=== PATIENT | male | born 1990 | race Caucasian/White ===

== ENCOUNTER 2016-09-30 23:35 | Emergency (ER) | payer OTHER ==
--- NOTE | 2016-10-01 01:23 | ED ---
Melvin Maciel Benjamin, scribed for Tian Louis MD on 10/01/16 at 0123 . GI/ HPI - HPI Summary HPI Summary: 25yo male who recently tried to castrate himself with a failed attempt. Pt was seen at [facility] 5 days ago. Pt returns with sudden onset of severe right suprapubic and testicular pain today after hearing a rip and pop. - History of Current Complaint Chief Complaint: EDGeneral Stated Complaint: TESTICLE PAIN Hx Obtained From: Patient Onset/Duration: Started Hours Ago, Still Present Timing: Constant Severity: Severe Current Severity: Severe Pain Intensity: 8 Location of Pain: Suprapubic - right Additional Locations for Males: Scrotum, Testicles Pain Characteristics: Sharp, Tearing Associated Signs and Symptoms: Positive: Negative - Allergy/Home Medications Allergies/Adverse Reactions: Allergies Allergy/AdvReac Type Severity Reaction Status Date / Time Amoxicillin Allergy Anaphylatic Verified 05/24/15 20:33 Shock PMH/Surg Hx/FS Hx/Imm Hx Endocrine/Hematology History: Denies: Hx Diabetes Cardiovascular History: Denies: Hx Congestive Heart Failure, Hx Hypertension GI History: Reports: Hx Gastroesophageal Reflux Disease History: Denies: Hx Dialysis, Hx Renal Disease Neurological History: Reports: Hx Headaches - Surgical History Surgery Procedure, Year, and Place: s/p appendectomy & cholecystectomy Infectious Disease History: No Infectious Disease History: Denies: Traveled Outside the in Last 30 Days - Family History Known Family History: Positive: Hypertension Negative: Cardiac Disease - Social History Occupation: Unemployed Lives: Alone Alcohol Use: None Hx Substance Use: No Substance Use Type: Reports: None Smoking Status (MU): Current Every Day Smoker Review of Systems Constitutional: Negative Eyes: Negative ENT: Negative Cardiovascular: Negative Respiratory: Negative Gastrointestinal: Negative Positive: pain - testicular and right suprapubic pain Musculoskeletal: Negative Skin: Negative Neurological: Negative Psychological: Normal All Other Systems Reviewed And Are Negative: Yes Physical Exam Triage Information Reviewed: Yes Vital Signs On Initial Exam: Initial Vitals Temp Pulse Resp BP Pulse Ox 98.3 F 95 18 118/72 98 09/30/16 23:41 09/30/16 23:41 09/30/16 23:41 09/30/16 23:41 09/30/16 23:41 Vital Signs Reviewed: Yes Appearance: Positive: Well-Appearing, Pain Distress - mild Skin: Positive: Warm Head/Face: Positive: Normal Head/Face Inspection ENT: Positive: Hearing grossly normal Respiratory/Lung Sounds: Positive: Breath Sounds Present Abdomen Description: Positive: Nontender, Soft Male Genital Exam: Positive: other - scrotal laceration with testicle on the ouside with combine ontop Musculoskeletal: Positive: Strength/ROM Intact Neurological: Positive: Alert, Oriented to Person Place, Time Diagnostics - Vital Signs Vital Signs Temp Pulse Resp BP Pulse Ox 10/01/16 01:11 98 F 95 18 118/72 98 09/30/16 23:41 98.3 F 95 18 118/72 98 - Laboratory Lab Statement: Any lab studies that have been ordered have been reviewed, and results considered in the medical decision making process. GIGU Course/Dx - Course Course Of Treatment: Discussed with [facility] for transfer via EMS at 01:07. - Diagnoses Provider Diagnoses: Testicle trouble Discharge - Discharge Plan Condition: Fair Disposition: TRANS HIGHER LVL OF CARE FAC Referrals: Danita Cardenas DO [Primary Care Provider] - The documentation as recorded by the Melvin horvath Benjamin accurately reflects the service I personally performed and the decisions made by me, Tian Louis MD.
[2016-10-01 03:03] VITALS: BP 137/86
== END 2016-10-01 03:03 | disposition short-term general hospital (02) ==
LOC: ED 23:35
DX: N50.811 Right testicular pain (principal); S31.3 Open wound of scrotum and testes; V00-Y99 External causes of morbidity; Y92.9 Unspecified place or not applicable; K21.9 Gastro-esophageal reflux disease without esophagitis; R51 Headache; Z90.49 Acquired absence of other specified parts of digestive tract; Z88.1 Allergy status to other antibiotic agents; F17.210 Nicotine dependence, cigarettes, uncomplicated
CPT/HCPCS: 99283

== ENCOUNTER 2017-01-26 12:02 | Emergency (ER) | payer OTHER ==
[2017-01-26] MEDS ORDERED: Aspirin Low Dose CHEW TAB* 81 MG PO ONE (13:37)
[2017-01-26] MEDS ORDERED: Morphine INJ* 4 MG/ML 1 ML CARPUJECT IV ONE (13:39)
[2017-01-26] MEDS ORDERED: NS 0.9% 1000 ML* 1,000 ML IV ONE (13:39)
[2017-01-26] MEDS ORDERED: Ondansetron INJ* 2 MG/ML VIAL IV ONE (13:39)
[2017-01-26 14:00] LABS: Hematocrit 38 % (42-52); Hemoglobin 12.3 g/dl (14.0-18.0); Mean Corpuscular HGB Conc 33 g/dl (31-36); Mean Corpuscular Hemoglobin 30 pg (27-31); Mean Corpuscular Volume 91 fL (80-94); Mean Platelet Volume 8 um3 (7.4-10.4); Red Blood Count 4.16 10^6/ul (4.0-5.4); Red Cell Distribution Width 13 % (10.5-15)
[2017-01-26 14:16] LABS: Alcohol < 10 mg/dL (<10)
[2017-01-26 14:18] LABS: ALT 13 U/L (7-52); AST 15 U/L (13-39); Albumin 4.2 g/dL (3.2-5.2); Alkaline Phosphatase 60 U/L (34-104); Anion Gap 7 mmol/L (2-11); BUN/Creatinine Ratio 18.3 (8-20); Blood Urea Nitrogen 13 mg/dL (6-24); CO2 Carbon Dioxide 25 mmol/L (22-32); Calcium 9.3 mg/dL (8.6-10.3); Chloride 103 mmol/L (101-111); EGFR African American 169.9 (>60); EGFR Non-African American 132.1 (>60); Glucose 91 mg/dL (70-100); Potassium 3.8 mmol/L (3.5-5.0); Sodium 135 mmol/L (133-145); Total Protein 7.2 g/dL (6.4-8.9)
[2017-01-26 14:22] LABS: Benzodiazepine Urine Screen None Detected (None Detect)
[2017-01-26] MEDS ORDERED: Iohexol 350* (CONTRAST) 500 ML MDV IV ONE (14:24)
--- NOTE | 2017-01-26 15:14 | RAD ---
HISTORY: Chest pain, syncope, sudden onset headache COMPARISONS: None TECHNIQUE: Multiple contiguous axial CT scans were obtained of the head without intravenous contrast. FINDINGS: HEMORRHAGE/INFARCT: There is no hemorrhage or acute infarct. MASSES/SHIFT: There is no mass or shift. EXTRA-AXIAL SPACES: There are no extra-axial fluid collections. SULCI AND VENTRICLES: The sulci and ventricles are normal in size and position for the patient's stated age. CEREBRUM: There are no focal parenchymal abnormalities. BRAINSTEM: There are no focal parenchymal abnormalities. CEREBELLUM: There are no focal parenchymal abnormalities. VESSELS: The vessels are grossly normal. PARANASAL SINUSES: The paranasal sinuses are clear. ORBITS: The orbits are unremarkable. BONES AND SOFT TISSUE: No bone or soft tissue abnormalities are noted. OTHER: None IMPRESSION: NO ACUTE INTRACRANIAL PATHOLOGY.
--- NOTE | 2017-01-26 15:16 | RAD ---
HISTORY: Syncope, fall, facial trauma COMPARISONS: None TECHNIQUE: Multiple contiguous axial CT scans were obtained of the face without intravenous contrast, with coronal and sagittal multiplanar reformations. FINDINGS: BONES: There is no displaced fracture or dislocation. The orbital rim is intact. The zygomatic arch is intact. The pterygoid plates are intact. ORBITS: The globes are round. The optic nerves are symmetric. The extraocular musculature is normal. There is no post septal or intraconal inflammatory change. There is no retrobulbar hematoma. PARANASAL SINUSES: There is mild mucosal thickening of the maxillary sinuses. There are small bilateral mastoid effusions. BRAIN AND SOFT TISSUE: Unremarkable. OTHER: None. IMPRESSION: 1. NO FACIAL FRACTURE. 2. SMALL BILATERAL MASTOID EFFUSIONS. MILD SINUS MUCOSAL INFLAMMATORY DISEASE, WITHOUT AIR-FLUID LEVEL TO SUGGEST ACUTE SINUSITIS.
--- NOTE | 2017-01-26 15:17 | RAD ---
HISTORY: Chest pain, syncope, fall, altered mental status, facial trauma COMPARISONS: None TECHNIQUE: Multiple contiguous axial CT scans were obtained of the cervical spine without intravenous contrast, with coronal and sagittal multiplanar reformations. FINDINGS: BRAIN: The visualized brain is unremarkable CENTRAL CANAL: Evaluation of the central canal is limited on CT technique, however there is no obvious canalicular mass or epidural hemorrhage. ALIGNMENT: There is straightening of the normal cervical lordosis. VERTEBRAL BODIES: The odontoid process is intact. The atlantoaxial intervals are symmetric. The vertebral bodies are normal in attenuation, without fracture. JOINTS: There is no subluxation or dislocation MUSCULATURE: Unremarkable INTERVERTEBRAL DISCS: There is mild diffuse loss of intervertebral disc height. AXIAL IMAGES: On axial images, there is no osseous neural foraminal narrowing or central canal stenosis. SOFT TISSUES: The visualized soft tissues of the neck are unremarkable. The prevertebral fat stripe is preserved. OTHER: None. IMPRESSION: NO ACUTE OSSEOUS INJURY OF THE CERVICAL SPINE
[2017-01-26] MEDS ORDERED: Ketorolac INJ* 30 MG/ML 1 ML VIAL IV PUSH ONE (15:25)
--- NOTE | 2017-01-26 15:27 | RAD ---
INDICATION: Chest pain, syncope on hormone replacement therapy. COMPARISON: There are no prior studies available for comparison. TECHNIQUE: A CT angiogram of the chest was performed with intravenous following intravenous injection of 76 ml of Omnipaque 350 nonionic contrast. Contiguous axial sections were obtained from the lung apices through the lung bases. Images were reconstructed in the coronal and sagittal planes. FINDINGS: There is slightly suboptimal opacification of the pulmonary arteries. There is an intraluminal filling defect in a left posterior basilar segmental artery extending into the subsegmental artery branch consistent with a pulmonary embolism. No other intraluminal filling defects are seen. The heart is within normal limits in size. No pericardial effusion is present. The thoracic aorta is normal in caliber and demonstrates homogeneous contrast opacification. No significant enlarged mediastinal or hilar lymph nodes are seen. The lungs are clear. No pleural effusion is seen. Images of the upper abdomen appear within normal limits without evidence for acute finding. No significant focal osseous abnormality is seen. The results of this exam were discussed with the referring clinician. IMPRESSION: LEFT LOWER LOBE BASILAR SEGMENTAL AND SUBSEGMENTAL ARTERY BRANCH PULMONARY EMBOLI.
[2017-01-26] MEDS ORDERED: Pantoprazole IV* 40 MG IV ONE (16:59)
[2017-01-26] MEDS ORDERED: Pantoprazole IV* 80 MG in NS 0.9% 250 ML* 250 ML IVPB SCH (17:00)
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
--- NOTE | 2017-01-26 18:28 | ED ---
IArben Angela, scribed for Darell Dyson MD on 01/26/17 at 1820 . Progress - Progress Note Progress Note: [facility] reports [facility], who accepts inmates, are on diversion. Called [facility] at 17:33. They reported the didn't have any beds. Called [facility] at 18:11. Dr. Alfonso accepts the pt for transfer to ED in [facility]. He understands the pt has not had any anticoagulation. He also understands we have called 5 different hospitals but none were able to accept the pt. Re-Evaluation - Re-Evaluation First Eval Re-Evaluation Time: 16:15 Comment: I reviewed the CTA chest with the pt. Pt reports he was told he was at high risk for a pulmonary embolism. Course/Dx - Diagnoses Provider Diagnoses: Pulmonary embolism, Hematemesis, Syncope, Facial abrasion - Provider Notifications Time Discussed With Above Provider: 16:37 Instructed by Provider To: Other - I discussed pt care with Dr. Umaña, who accepted the pt for transfer to [facility]. Since the pt is hemodrynamically stable, we will hold off on anticoagulation until GI bleed is defined. The documentation as recorded by the Arben horvath Angela accurately reflects the service I personally performed and the decisions made by me, Darell Dyson MD.
[2017-01-26 18:36] VITALS: BP 124/84
== END 2017-01-26 19:17 | disposition short-term general hospital (02) ==
LOC: ED 12:02
DX: R55 Syncope and collapse (principal); I26.99 Other pulmonary embolism without acute cor pulmonale; K92.0 Hematemesis; S00.81XA Abrasion of other part of head, initial encounter; K21.9 Gastro-esophageal reflux disease without esophagitis; W50.0XXA Accidental hit or strike by another person, initial encounter; Y92.149 Unspecified place in prison as the place of occurrence of the external cause
CPT/HCPCS: 36415; 70450; 70486; 71275; 72125; 80053; 80307; 80320; 83605; 84484; 85025; 93005; 96360; 96374; 96375; 99284; A9270-GY; G0480; J1885; J2270; J2405; Q9967

== ENCOUNTER 2017-03-18 16:20 | Emergency (ER) | payer OTHER ==
--- NOTE | 2017-03-18 17:35 | RAD ---
INDICATION: Foreign body in penis. TECHNIQUE: An AP view of the pelvis was obtained. FINDINGS: The bones are in normal alignment. No fracture is seen. No radiopaque foreign body is seen. IMPRESSION: NO RADIOPAQUE FOREIGN BODY IS SEEN.
[2017-03-18 17:44] LABS: ABS Basophils 0.1 10^3/ul (0-0.2); ABS Eosinophils 0.2 10^3/ul (0-0.6); ABS Monocytes 0.8 10^3/ul (0-0.8); ABS Neutrophils 6.6 10^3/ul (1.5-7.7); ABS Nucleated RBC 0 10^3/ul; Eosinophil % 2.2 % (0-6); Hematocrit 27 % (42-52); Hemoglobin 8.8 g/dl (14.0-18.0); Lymphocyte % 20.5 % (25-47); Mean Corpuscular HGB Conc 33 g/dl (31-36); Mean Corpuscular Hemoglobin 28 pg (27-31); Mean Corpuscular Volume 84 fL (80-94); Mean Platelet Volume 7 um3 (7.4-10.4); Nucleated Red Blood Cells % 0; Platelet Count 557 10^3/ul (150-450); Red Cell Distribution Width 15 % (10.5-15); White Blood Count 9.7 10^3/ul (3.5-10.8)
[2017-03-18 17:52] LABS: INR 1.01 (0.77-1.02)
[2017-03-18 17:59] LABS: EGFR Non-African American 111.9 (>60)
--- NOTE | 2017-03-18 18:28 | RAD ---
INDICATION: Foreign body in the penis. COMPARISON: Comparison is made with a prior CT of the abdomen and pelvis from May 25, 2015. TECHNIQUE: Contiguous axial sections were obtained through the pelvis without intravenous or oral contrast. Images were reconstructed in the coronal and sagittal planes. FINDINGS: There is a cylindrical air density area present within the distal portion of the penis measuring 2.5 cm long by 0.2 cm in diameter possibly associated with a foreign body although discrete radiopaque foreign body is not visualized. The urinary bladder is nondistended. No bladder wall thickening is seen. No air or foreign body is noted within the bladder. The visualized portion of the small bowel and colon appear nondistended. There is mild sigmoid diverticulosis without evidence for diverticulitis. The patient appears to be status post appendectomy. No free intraperitoneal air or fluid is seen. No significant focal osseous abnormality is seen. There appears to be a small old ununited avulsion fracture fragment arising from the right lesser trochanter. Joint spaces appear maintained. No significant arthritic change is seen IMPRESSION: THERE IS A CYLINDRICAL AIR DENSITY AREA PRESENT IN THE DISTAL PORTION OF THE PENIS IN THE REGION OF THE URETHRA POSSIBLY ASSOCIATED WITH A FOREIGN BODY ALTHOUGH A DISCRETE RADIOPAQUE FOREIGN BODY IS NOT SEEN.
[2017-03-18] MEDS ORDERED: Clindamycin CAP* 150 MG PO ONE (20:06)
--- NOTE | 2017-03-18 20:16 | ED ---
Isaias Maciel Natalie, scribed for Hollis Melendrez MD on 03/18/17 at 1724 . GI/ HPI - HPI Summary HPI Summary: The pt is a 26 y/o M presenting to the ED c/o foreign objects in urethra since 03/16/17. The pt placed a rolled up yogurt foil top and piece of gauze paper wrapper in his urethra, both of which are not currently visible anymore. He has been unable to urinate since 03/16/17, but he has noticed minimal bleeding. The pt also has a ruptured wound from a castration attempt in the left testicular side of scrotum. The pt is currently in pain, which is rated 7/10. Pt additionally c/o low back pain bilaterally. He hasnt been drinking due to having a full bladder. He had to go to [facility] earlier this month for having a piece of a spoon stuck in his urethra, which was taken out without surgery. - History of Current Complaint Chief Complaint: EDUrogenitalProblems Stated Complaint: UNABLE TO VOID Hx Obtained From: Patient Onset/Duration: Started Days Ago - 03/16/17, Still Present Timing: Lasting Days Severity: Severe Current Severity: Severe Pain Intensity: 7 Additional Locations for Males: Penis Associated Signs and Symptoms: Positive: Back Pain, Other: - blood from urethra , unable to urinate, ruptured castration attempt wound Aggravating Factor(s): Voiding Alleviating Factor(s): Nothing - Allergy/Home Medications Allergies/Adverse Reactions: Allergies Allergy/AdvReac Type Severity Reaction Status Date / Time Amoxicillin Allergy Anaphylatic Verified 05/24/15 20:33 Shock PMH/Surg Hx/FS Hx/Imm Hx Previously Healthy: No Endocrine/Hematology History: Denies: Hx Diabetes Cardiovascular History: Denies: Hx Congestive Heart Failure, Hx Hypertension GI History: Reports: Hx Gastroesophageal Reflux Disease History: Denies: Hx Dialysis, Hx Renal Disease Neurological History: Reports: Hx Headaches Psychiatric History: Reports: Hx Substance Abuse, Other Psychiatric Issues/ Disorders - gender identity - Surgical History Surgery Procedure, Year, and Place: s/p appendectomy & cholecystectomy Infectious Disease History: No Infectious Disease History: Denies: Traveled Outside the [place] in Last 30 Days - Family History Known Family History: Positive: Hypertension, Other - Mother: ischemic stroke Negative: Cardiac Disease - Social History Alcohol Use: None Hx Substance Use: No Substance Use Type: Reports: None Smoking Status (MU): Never Smoked Tobacco Review of Systems Positive: pain, other - foreign objects in urethra, bleeding from urethra Positive: Other - low back pain Neurological: Other - decreased drinking All Other Systems Reviewed And Are Negative: Yes Physical Exam - Summary Physical Exam Summary: Appearance: Well-appearing, Well-nourished Skin: Warm, dry HEENT: Normal, Extraocular movements intact, PERRL Mucus membranes moist Neck: Supple, nontender Respiratory: Lung sounds clear to auscultation Cardiovascular: Normal Abdomen: Soft, nontender, no distension Bowel: Present : Penis: normal external anatomy, no evidence of foreign body. Scrotum: 3cm angulated laceration at anterior scrotum along midline, bleeding controlled [employer] , this is an old injury that opened up today Musculoskeletal: Normal, Strength/ROM Intact Neurological: Normal, A&Ox3 Psychiatric: Normal Triage Information Reviewed: Yes Vital Signs On Initial Exam: Initial Vitals Temp Pulse Resp BP Pulse Ox 98.4 F 84 16 124/62 99 03/18/17 16:22 03/18/17 16:22 03/18/17 16:22 03/18/17 16:22 03/18/17 16:22 Vital Signs Reviewed: Yes - [place] Coma Scale Coma Scale Total: 15 Diagnostics - Vital Signs Vital Signs Temp Pulse Resp BP Pulse Ox 03/18/17 16:22 98.4 F 84 16 124/62 99 - Laboratory Lab Results: Lab Results 03/18/17 03/18/17 03/18/17 Range/Units 17:30 17:30 17:30 WBC 9.7 (3.5-10.8) 10^3/ul RBC 3.20 L (4.0-5.4) 10^6/ul Hgb 8.8 L (14.0-18.0) g/dl Hct 27 L (42-52) % MCV 84 (80-94) fL MCH 28 (27-31) pg MCHC 33 (31-36) g/dl RDW 15 (10.5-15) % Plt Count 557 H (150-450) 10^3/ul MPV 7 L (7.4-10.4) um3 Neut % (Auto) 68.4 (38-83) % Lymph % (Auto) 20.5 L (25-47) % Ralls % (Auto) 8.3 (1-9) % Eos % (Auto) 2.2 (0-6) % Baso % (Auto) 0.6 (0-2) % Absolute Neuts (auto) 6.6 (1.5-7.7) 10^3/ul Absolute Lymphs (auto) 2.0 (1.0-4.8) 10^3/ul Absolute Monos (auto) 0.8 (0-0.8) 10^3/ul Absolute Eos (auto) 0.2 (0-0.6) 10^3/ul Absolute Basos (auto) 0.1 (0-0.2) 10^3/ul Absolute Nucleated RBC 0 10^3/ul Nucleated RBC % 0 INR (Anticoag Therapy) 1.01 (0.77-1.02) APTT 31.9 (26.0-36.3) seconds Sodium 137 (133-145) mmol/L Potassium 4.3 (3.5-5.0) mmol/L Chloride 105 (101-111) mmol/L Carbon Dioxide 27 (22-32) mmol/L Anion Gap 5 (2-11) mmol/L BUN 12 (6-24) mg/dL Creatinine 0.82 (0.67-1.17) mg/dL Est GFR ( Amer) 143.9 (>60) Est GFR (Non-Af Amer) 111.9 (>60) BUN/Creatinine Ratio 14.6 (8-20) Glucose 95 (70-100) mg/dL Lactic Acid (0.5-2.0) mmol/L Calcium 9.0 (8.6-10.3) mg/dL Magnesium 2.0 (1.9-2.7) mg/dL Total Bilirubin 0.30 (0.2-1.0) mg/dL AST 10 L (13-39) U/L ALT 14 (7-52) U/L Alkaline Phosphatase 48 (34-104) U/L Total Protein 7.1 (6.4-8.9) g/dL Albumin 3.9 (3.2-5.2) g/dL Globulin 3.2 (2-4) g/dL Albumin/Globulin Ratio 1.2 (1-3) 03/18/17 Range/Units 17:30 WBC (3.5-10.8) 10^3/ul RBC (4.0-5.4) 10^6/ul Hgb (14.0-18.0) g/dl Hct (42-52) % MCV (80-94) fL MCH (27-31) pg MCHC (31-36) g/dl RDW (10.5-15) % Plt Count (150-450) 10^3/ul MPV (7.4-10.4) um3 Neut % (Auto) (38-83) % Lymph % (Auto) (25-47) % Ralls % (Auto) (1-9) % Eos % (Auto) (0-6) % Baso % (Auto) (0-2) % Absolute Neuts (auto) (1.5-7.7) 10^3/ul Absolute Lymphs (auto) (1.0-4.8) 10^3/ul Absolute Monos (auto) (0-0.8) 10^3/ul Absolute Eos (auto) (0-0.6) 10^3/ul Absolute Basos (auto) (0-0.2) 10^3/ul Absolute Nucleated RBC 10^3/ul Nucleated RBC % INR (Anticoag Therapy) (0.77-1.02) APTT (26.0-36.3) seconds Sodium (133-145) mmol/L Potassium (3.5-5.0) mmol/L Chloride (101-111) mmol/L Carbon Dioxide (22-32) mmol/L Anion Gap (2-11) mmol/L BUN (6-24) mg/dL Creatinine (0.67-1.17) mg/dL Est GFR ( Amer) (>60) Est GFR (Non-Af Amer) (>60) BUN/Creatinine Ratio (8-20) Glucose (70-100) mg/dL Lactic Acid 1.4 (0.5-2.0) mmol/L Calcium (8.6-10.3) mg/dL Magnesium (1.9-2.7) mg/dL Total Bilirubin (0.2-1.0) mg/dL AST (13-39) U/L ALT (7-52) U/L Alkaline Phosphatase (34-104) U/L Total Protein (6.4-8.9) g/dL Albumin (3.2-5.2) g/dL Globulin (2-4) g/dL Albumin/Globulin Ratio (1-3) Result Diagrams: 03/18/17 17:30 03/18/17 17:30 Lab Statement: Any lab studies that have been ordered have been reviewed, and results considered in the medical decision making process. - Radiology Pelvis XR Xray Interpretation: No Acute Changes - No radiopaque foreign body is seen. ED physician has reviewed this report. Radiology Interpretation Completed By: Radiologist - CT CT Pelvis CT Interpretation: No Acute Changes - There is a cylindrical air density area present in the distal portion of the penis in the region of the urethra possibly associated with a foreign body although a discrete radiopaque foreign body is not seen. ED physician has reviewed this report. CT Interpretation Completed By: Radiologist ANURADHAU Course/Dx - Course Assessment/Plan: possible foreign body visualized on ct, after which patient says he was able to remove from penis and showed me FB in urinal. bladder scan shows 126ml of urine, normal creatinine and BUN, no evidence of obstruction or nephropathy. No evidence of metallic FB on ct. Pt able to urinate here in ED. Old scrotal laceration shows no evidence of infection. bleeding controlled, closure not indicated at this time due to infection risk. Started on prophylactic antibiotics for healing with secondary intent. Instructed to fu with PMD or urologist for wound check. agrees to and understnads dc instructions. - Diagnoses Provider Diagnoses: Penile FB, Scrotal laceration Discharge - Discharge Plan Condition: Improved Disposition: LAW ENFORCEMENT/COURT Prescriptions: Clindamycin HCl [Clindamycin 150 MG CAP*] 300 mg PO QID 7 Days #56 cap Patient Education Materials: Laceration (ED), Soft Tissue Foreign Body (ED) Referrals: Casey RENTERIA,Sol Hernandez [Primary Care Provider] - Additional Instructions: PLEASE TAKE CLINDAMYCIN 300MG FOUR TIMES DAILY FOR 7 DAYS TO PREVENT INFECTION IN SCROTAL AREA PLEASE MAKE AN APPOINTMENT WITH A UROLOGIST TO REEVALUATE WOUND CLOSURE PLEASE RETURN IMMEDIATELY TO THE ER IF YOU HAVE ANY WORSENING OR CONCERNING SYMPTOMS PLEASE MAKE AN APPOINTMENT TO BE SEEN BY YOUR PRIMARY CARE DOCTOR WITHIN 1 WEEK The documentation as recorded by the Isaias horvath Natalie accurately reflects the service I personally performed and the decisions made by , Hollis Melendrez MD.
[2017-03-18 20:51] VITALS: BP 108/68
== END 2017-03-18 20:51 ==
LOC: ED 16:20
DX: T19.0XXA Foreign body in urethra, initial encounter (principal); S31.31XA Laceration without foreign body of scrotum and testes, initial encounter; M54.9 Dorsalgia, unspecified; W45.8XXA Other foreign body or object entering through skin, initial encounter; Y92.9 Unspecified place or not applicable
CPT/HCPCS: 36415; 72170; 72192; 80053; 83605; 83735; 85025; 85610; 85730; 99283; A9270-GY

== ENCOUNTER 2017-08-15 07:40 | Emergency (ER) | payer OTHER ==
[2017-08-15] MEDS ORDERED: Phytonadione INJ (Adult)* 10 MG/ML 1 ML AMP IV ONE (07:57)
[2017-08-15] MEDS ORDERED: LORazepam INJ* 2 MG/ML 1 ML VIAL ONE (08:04)
[2017-08-15] MEDS ORDERED: Levofloxacin 750 MG IVPREMIX(* 750 MG/150 ML BAG IVPB ONE (08:04)
[2017-08-15] MEDS ORDERED: LORazepam INJ* 2 MG/ML 1 ML VIAL IV PUSH ONE (08:08)
[2017-08-15] MEDS ORDERED: DOXYcycline IV* 100 MG in NS 0.9% 250 ML* 250 ML IVPB ONE (08:14)
[2017-08-15 08:31] LABS: Hematocrit 38 % (42-52); Hemoglobin 12.4 g/dl (14.0-18.0); Mean Corpuscular HGB Conc 33 g/dl (31-36); Mean Corpuscular Hemoglobin 30 pg (27-31); Mean Corpuscular Volume 91 fL (80-94); Mean Platelet Volume 7.6 um3 (7.4-10.4); Platelet Count 417 10^3/ul (150-450); Red Blood Count 4.14 10^6/ul (4.0-5.4); Red Cell Distribution Width 15 % (10.5-15); White Blood Count 39.2 10^3/ul (3.5-10.8)
[2017-08-15 08:41] LABS: INR 2.29 (0.77-1.02)
[2017-08-15 08:53] LABS: ABS Basophils 0.1 10^3/ul (0-0.2); ABS Eosinophils 0.1 10^3/ul (0-0.6); ABS Monocytes 3.2 10^3/ul (0-0.8); ABS Neutrophils 33.8 10^3/ul (1.5-7.7); ABS Nucleated RBC 0 10^3/ul; Eosinophil % 0.2 % (0-6); Nucleated Red Blood Cells % 0.1
[2017-08-15] MEDS ORDERED: Tetan/Diph/Pertus SYR(Tdap)* 0.5 ML SYR(BOOSTRIX) use SYR IM ONE (09:00)
--- NOTE | 2017-08-15 09:00 | ED ---
Theresa Maciel Rebecca, scribed for Donald Lara MD on 08/15/17 at 0805 . GI/ HPI - HPI Summary HPI Summary: Pt is a 26 y/o transgender who prefers the pronouns she/her BIBA from [place] who presents to ED with a scrotal laceration and scrotal and testicular bleeding s/p self-induced injury and attempted right testicle removal. Pt reports that she began ripping through the scrotal sac with her fingers at about midnight (7 hours 40 minutes NEWS ANCHOR) and she reports severing a vessel at 0500 (2 hours 40 minutes NEWS ANCHOR). Pt states that she was trying to get the testicle off and I didnt really care if it killed me. States that she found the large vein, artery and ripped through it. Reports that she lost control and that this is her third time doing so, though not previously as severely. Associated pain is currently severe, ranked 9/10. Currently c/o right foot numbness, per nurses triage. Additionally notes swallowing a pen on Sunday night (3 days ago) after which she was on suicide watch. Previously was taking estrogen, but stopped it last year, is now on spironolactone and progesterone. PMHx psoriasis, psoriatic arthritis, PE is currently on Coumadin. - History of Current Complaint Chief Complaint: EDTraumaMultiple Stated Complaint: TESTICLE INJURY Hx Obtained From: Patient Onset/Duration: Started Hours Ago - 0000, Still Present, Worse Since - 0500 Current Severity: Severe Pain Intensity: 9 Additional Locations for Males: Scrotum, Testicles Associated Signs and Symptoms: Positive: Other: - R foot numbness - Allergy/Home Medications Allergies/Adverse Reactions: Allergies Allergy/AdvReac Type Severity Reaction Status Date / Time amoxicillin Allergy Anaphylatic Verified 08/15/17 08:34 Shock Home Medications: Home Medications Ferrous Sulfate TAB* 325 mg PO BID 08/15/17 [History Confirmed 08/15/17] Finasteride [Proscar] 5 mg PO DAILY 08/15/17 [History Confirmed 08/15/17] Warfarin TAB(*) [Coumadin TAB(*)] 10 mg PO QPM 08/15/17 [History Confirmed 08/15] medroxyPROGESTERone TAB* [Provera TAB*] 5 mg PO DAILY 06/06/18 [History Confirmed 08/15/17] PMH/Surg Hx/FS Hx/Imm Hx Endocrine/Hematology History: Reports: Hx Anticoagulant Therapy - Coumadin, Other Endocrine/Hematological Disorders - Hx psoriasis Denies: Hx Diabetes Cardiovascular History: Denies: Hx Congestive Heart Failure, Hx Hypertension Respiratory History: Reports: Hx Pulmonary Embolism GI History: Reports: Hx Gastroesophageal Reflux Disease History: Denies: Hx Dialysis, Hx Renal Disease Musculoskeletal History: Reports: Other Musculoskeletal History - Hx Psoriatic arthritis Neurological History: Reports: Hx Headaches Psychiatric History: Reports: Hx Substance Abuse, Other Psychiatric Issues/ Disorders - gender identity - Surgical History Surgery Procedure, Year, and Place: s/p appendectomy & cholecystectomy Infectious Disease History: No Infectious Disease History: Denies: Traveled Outside the [place] in Last 30 Days - Family History Known Family History: Positive: Hypertension, Other - Mother: ischemic stroke Negative: Cardiac Disease - Social History Alcohol Use: None Hx Substance Use: No Substance Use Type: Reports: None Smoking Status (MU): Never Smoked Tobacco Review of Systems Positive: pain - Scrotal and testicular, other - Scrotal and testicular bleeding Positive: Other - Scrotal laceration Positive: Numbness - foot Positive: Other - Swallowed a pen All Other Systems Reviewed And Are Negative: Yes Physical Exam - Summary Physical Exam Summary: Appearance: In distress, shivering Skin: pale, cold Head/face: normal Eyes: EOMI, BRISA ENT: normal Neck: supple, non-tender Respiratory: CTA, breath sounds present Cardiovascular: Tachycardic, pulses symmetrical Abdomen: non-tender, soft Bowel Sounds: present Musculoskeletal: normal, strength/ROM intact Neuro: normal, sensory motor intact, A&Ox3 : Streaming pulsatile hemorrhage from a vessel on the exposed testicle on the right side Triage Information Reviewed: Yes Vital Signs On Initial Exam: Initial Vitals Temp Pulse Resp BP Pulse Ox 98.5 F 115 12 122/78 99 08/15/17 07:47 08/15/17 07:47 08/15/17 07:47 08/15/17 07:47 08/15/17 07:47 Vital Signs Reviewed: Yes Procedures - Procedure Summary Procedure Summary: Wound management: Reason: Active arterial hemorrhage Description: The right testicle was exposed from the right hemiscrotum. There is a actively bleeding pulsatile continuous flow from a lacerated artery. I put pressure on this which failed to stop the bleeding. I then infiltrated 1 cc of lidocaine into the area and placed a edydga-gy-vfeox suture of 4-0 Vicryl. This stopped the bleeding temporarily. About 5-10 minutes later bleeding recurred. A hemostat clamp was placed on the bleeder and a second vrndnq-hn-zxovf suture of 4-0 chromic was placed. This stopped the bleeding. Saline soaked surgical towel was placed over the area. Patient tolerated this well without complication other than bleeding. Blood loss prior to procedure was significant. Diagnostics - Vital Signs Vital Signs Temp Pulse Resp BP Pulse Ox 08/15/17 07:47 98.5 F 115 12 122/78 99 - Laboratory Lab Results: Lab Results 08/15/17 08/15/17 08/15/17 Range/Units 08:21 08:21 08:21 WBC (3.5-10.8) 10^3/ul RBC (4.0-5.4) 10^6/ul Hgb (14.0-18.0) g/dl Hct (42-52) % MCV (80-94) fL MCH (27-31) pg MCHC (31-36) g/dl RDW (10.5-15) % Plt Count (150-450) 10^3/ul MPV (7.4-10.4) um3 Neut % (Auto) Lymph % (Auto) [place] % (Auto) Eos % (Auto) Baso % (Auto) Absolute Neuts (auto) Absolute Lymphs (auto) Absolute Monos (auto) Absolute Eos (auto) Absolute Basos (auto) Absolute Nucleated RBC Nucleated RBC % INR (Anticoag Therapy) 2.29 H (0.77-1.02) APTT 36.5 H (26.0-36.3) seconds Sodium 132 L (139-145) mmol/L Potassium 3.4 L (3.5-5.0) mmol/L Chloride 102 (101-111) mmol/L Carbon Dioxide 21 L (22-32) mmol/L Anion Gap 9 (2-11) mmol/L BUN 13 (6-24) mg/dL Creatinine 1.00 (0.67-1.17) mg/dL Est GFR ( Amer) 114.4 (>60) Est GFR (Non-Af Amer) 89.0 (>60) BUN/Creatinine Ratio 13.0 (8-20) Glucose 154 H (70-100) mg/dL Calcium 8.7 (8.6-10.3) mg/dL Total Bilirubin 0.80 (0.2-1.0) mg/dL AST 34 (13-39) U/L ALT 49 (7-52) U/L Alkaline Phosphatase 68 (34-104) U/L Total Protein 6.8 (6.4-8.9) g/dL Albumin 3.8 (3.2-5.2) g/dL Globulin 3.0 (2-4) g/dL Albumin/Globulin Ratio 1.3 (1-3) Blood Type A Positive Antibody Screen Pending Crossmatch See Detail 08/15/17 Range/Units 08:23 WBC 39.2 H (3.5-10.8) 10^3/ul RBC 4.14 (4.0-5.4) 10^6/ul Hgb 12.4 L (14.0-18.0) g/dl Hct 38 L (42-52) % MCV 91 (80-94) fL MCH 30 (27-31) pg MCHC 33 (31-36) g/dl RDW 15 (10.5-15) % Plt Count 417 (150-450) 10^3/ul MPV 7.6 (7.4-10.4) um3 Neut % (Auto) Pending Lymph % (Auto) Pending [place] % (Auto) Pending Eos % (Auto) Pending Baso % (Auto) Pending Absolute Neuts (auto) Pending Absolute Lymphs (auto) Pending Absolute Monos (auto) Pending Absolute Eos (auto) Pending Absolute Basos (auto) Pending Absolute Nucleated RBC Pending Nucleated RBC % Pending INR (Anticoag Therapy) (0.77-1.02) APTT (26.0-36.3) seconds Sodium (139-145) mmol/L Potassium (3.5-5.0) mmol/L Chloride (101-111) mmol/L Carbon Dioxide (22-32) mmol/L Anion Gap (2-11) mmol/L BUN (6-24) mg/dL Creatinine (0.67-1.17) mg/dL Est GFR ( Amer) (>60) Est GFR (Non-Af Amer) (>60) BUN/Creatinine Ratio (8-20) Glucose (70-100) mg/dL Calcium (8.6-10.3) mg/dL Total Bilirubin (0.2-1.0) mg/dL AST (13-39) U/L ALT (7-52) U/L Alkaline Phosphatase (34-104) U/L Total Protein (6.4-8.9) g/dL Albumin (3.2-5.2) g/dL Globulin (2-4) g/dL Albumin/Globulin Ratio (1-3) Blood Type Antibody Screen Crossmatch Result Diagrams: 08/15/17 08:23 08/15/17 08:21 Lab Statement: Any lab studies that have been ordered have been reviewed, and results considered in the medical decision making process. - Radiology CXR Xray Interpretation: No Acute Changes - Negative, no FB identified. Pending official report. Radiology Interpretation Completed By: ED Physician Abdomen XR Radiology Interpretation Completed By: ED Physician - Surgical clips in the RUQ. Pending official report. - EKG 0753 Cardiac Rate: Tachycardia - 137 bpm EKG Rhythm: Sinus Tachycardia EKG Interpretation: Nl axis, nl interval, rate-related ST changes Re-Evaluation - Re-Evaluation First Eval Re-Evaluation Time: 08:54 Change: Improved Comment: Patient had a likely ischemic seizure with extensor posturing. Quickly recovered. Ativan had been given. Bleeding now stopped after ligation. Helicopter transport unavailable. Improving with blood infusion, plasma being started now. GIGU Course/Dx - Course Course Of Treatment: Patient presents critically ill and obvious hemorrhagic shock. Patient is cold, shivering and pale. There is active hemorrhage ligated with 2 [id number] sutures. She is said to eaten a Pen also, I did not identify a foreign body on KUB x-ray. 2 units of packed red blood cells were given through rapid infuser (level I) the patient was warmed. Patient is anaphylactic to penicillin and so a dose of IV doxycycline was ordered. Transport arrangements were made by the physician optical assistant while I stabilized the patient. Our urologist was contacted but had just entered a case in the OR. The surgeon director zone came to the ER but agrees the patient should be sent to the trauma center. Accepting trauma physician will be Dr. Bray at [facility]. She did have a short tonic-clonic seizure which is likely due to hemorrhage/ischemia. Ativan was given. Bleeding was stopped and transfer arrangements are made by ground ALS. A unit of plasma was given prior to transport. Tetanus is up-to-date. Antibiotic pending. This likely will be given in route to trauma center. - Diagnoses Provider Diagnoses: Hemorrhagic shock, Self-inflicted injury, Scrotal laceration, Laceration of artery, Foreign body ingestion - Physician Notifications Discussed Care Of Patient With: Robert Ozuna Time Discussed With Above Provider: 07:59 Instructed by Provider To: Other - States that he is going to be in the O.R. and advised Levaquin administration. Discussed care of pt with [facility] who accepts for transfer with the accepting physician being Dr. Bray. - Critical Care Time Critical Care Time: 75-104 min - Critical care time excludes separately billable procedures Discharge - Sign-Out/Discharge Documenting (check all that apply): Discharge/Admit/Transfer - Transfer - Discharge Plan Condition: Guarded Disposition: TRANS HIGHER LVL OF CARE FAC Referrals: Casey RENTERIA,Sol Hernandez [Primary Care Provider] - - Billing Disposition and Condition Condition: GUARDED Disposition: Trans Higher Lvl of Care Fac The documentation as recorded by the Theresa horvath Rebecca accurately reflects the service I personally performed and the decisions made by me, Donald Lara MD.
[2017-08-15] MEDS ORDERED: Morphine VIAL* 4 MG/ML VIAL (1 ml vial) IV ONE (09:04)
--- NOTE | 2017-08-15 09:04 | RAD ---
INDICATION: Swallowed a pen on Sunday. COMPARISON: There are no prior studies available for comparison. TECHNIQUE: Frontal supine films of the abdomen were obtained. FINDINGS: The upper abdomen is cut off on the films. The visualized portion of the small bowel colon appear nondistended. There is a catheter within the urinary bladder. No foreign body is seen. Multiple surgical clips are noted in the right upper quadrant most consistent with a prior cholecystectomy. IMPRESSION: NO FOREIGN BODY IS SEEN ALTHOUGH THE UPPER ABDOMEN IS CUT OFF ON THE FILM PLEASE SEE THE CORRESPONDING CHEST X-RAY REPORT.
--- NOTE | 2017-08-15 09:05 | RAD ---
INDICATION: Patient swallowed a pen COMPARISON: None. TECHNIQUE: Single AP portable view of the chest was obtained. FINDINGS: Image quality is compromised due to the relative inferiority of a portable chest x-ray. The heart and mediastinum exhibit normal size and contour. The lungs are grossly clear. There is no evidence of a large pleural effusion. Visualized bones are normal for the patient's age. Overlying the superior margin of the gastric fundus is a hyperdense foreign body measuring 6 mm in greatest dimension that could be a pen tip. IMPRESSION: Foreign body overlying the superior margin of the gastric fundus which could be the tip of a pen.
[2017-08-15 09:21] VITALS: BP 110/74
== END 2017-08-15 09:45 | disposition short-term general hospital (02) ==
LOC: ED 07:40
DX: S31.31XA Laceration without foreign body of scrotum and testes, initial encounter (principal); T79.4XXA Traumatic shock, initial encounter; T18.9XXA Foreign body of alimentary tract, part unspecified, initial encounter; X78.9XXA Intentional self-harm by unspecified sharp object, initial encounter; Y92.149 Unspecified place in prison as the place of occurrence of the external cause
CPT/HCPCS: 36415; 36430; 71045; 74018; 80053; 85025; 85060; 85610; 85730; 86850; 86900; 86901; 86922; 86927; 90715; 93005; 96374; 96375; 99285; J2060; J2270; J3430; P9017; P9040